=== PATIENT | male | born 1990 | race Caucasian/White ===

== ENCOUNTER 2024-05-16 03:36 | Emergency (ER) | payer OTHER ==
[~2024-05-16] VITALS: Ht 167.6 cm; Wt 68.0 kg
[2024-05-16 03:43] VITALS: BP 135/86; PULSE 86; RESP 18; TEMP 98.5; O2SAT 98
[2024-05-16] MEDS ORDERED: MYLANTA ONE (04:19)
[2024-05-16] MEDS: PHENERGAN IM STA (04:25)
[2024-05-16] MEDS: MYLANTA PO STA (04:26)
[2024-05-16 04:35] VITALS: BP 138/77; PULSE 84; RESP 18; O2SAT 97
[2024-05-16 04:43] LABS: BASOPHIL % 0.4 % (0.2-1.2); EOSINOPHIL # 0.1 10^3/uL (0.0-0.2); EOSINOPHIL % 1.2 % (0.0-5.0); HEMATOCRIT(ML) 45.6 % (37.0-53.0); HEMOGLOBIN 15.6 g/dL (13.9-16.3); LYMPHOCYTES # 0.55 10^3/uL1 (1.0-4.8); LYMPHOCYTES % 6.8 % (24.0-44.0); MEAN CORP HGB 29.9 pg (26-34); MEAN CORP HGB CONCENTRATION 34.2 g/dL (33-36.5); MEAN CORP VOLUME 87.5 fL (78-100); MONOCYTES # 0.8 10^3/uL (0.3-0.8); MONOCYTES % 9.7 % (5.0-12.0); NEUTROPHIL # 6.6 10^3/uL (1.8-7.7); NEUTROPHILS % 81.5 % (41.0-85.0); PLATELET COUNT 190 10^3/uL (150-400); RED BLOOD CELL 5.21 10^6/uL (4.50-5.90); RED CELL DISTRIBUTION WIDTH 12.8 % (11.5-14.5); WHITE BLOOD CELL 8.1 10^3/uL (4.5-11.0)
[2024-05-16 04:47] LABS: +ADD MANUAL DIFF(NO CHRG) NO
[2024-05-16 04:56] LABS: BILIRUBIN,URINE NEGATIVE (NEGATIVE); LEUKOCYTE ESTERASE ,URINE TRACE (NEGATIVE); NITRATE,URINE NEGATIVE (NEGATIVE); PH,URINE 5.5 (4.5-8.0); UROBILINOGEN,URINE 0.2 E.U./dL (0.2)
[2024-05-16 04:57] LABS: APPEARANCE,URINE CLEAR; UA COLOR YELLOW
[2024-05-16 05:02] LABS: ALBUMIN(ML) 3.8 g/dL (3.4-5.0); ALBUMIN/GLOBULIN RATIO 1.117; ANION GAP 13.7; BUN/CREATININE RATIO 9.67 (10.0-20.0); CALCIUM 8.5 mg/dL (8.4-10.5); CARBON DIOXIDE 26.5 mmol/L (20.0-32); CREATININE SERUM 0.93 mg/dL (0.59-1.40); EST GFR, NON-AA 93.6 (>/=60); POTASSIUM 3.2 mmol/L (3.6-5.2)
[2024-05-16 05:36] VITALS: BP 137/80; PULSE 71; RESP 18; O2SAT 98
== END 2024-05-16 05:53 | disposition home or self-care (01) ==
LOC: ER 03:36
DX: K82.8 Other specified diseases of gallbladder (principal); K21.9 Gastro-esophageal reflux disease without esophagitis; F17.290 Nicotine dependence, other tobacco product, uncomplicated
CPT/HCPCS: 36415; 76705; 80053; 81001; 83690; 85025; 87086; 96372; 99285

== ENCOUNTER 2024-09-16 08:22 | Emergency (ER) | payer OTHER ==
[~2024-09-16] VITALS: Ht 167.6 cm; Wt 68.0 kg
[2024-09-16 08:26] VITALS: BP 142/86; PULSE 89; RESP 20; TEMP 99.5; O2SAT 96
== END 2024-09-16 09:07 | disposition home or self-care (01) ==
LOC: ER 08:22
DX: J11.1 Influenza due to unidentified influenza virus with other respiratory manifestations (principal)
CPT/HCPCS: 99282